=== PATIENT | male | born 1985 | race Two or more races ===

== ENCOUNTER 2023-05-15 04:04 | Emergency (ER) | payer OTHER ==
[~2023-05-15] VITALS: Ht 177.8 cm; Wt 100.0 kg
[2023-05-15] MEDS ORDERED: LORazepam 2 MG/ML VIAL IVP ONE (04:30)
[2023-05-15] MEDS ORDERED: MIDAZOLAM HCL 5 MG/ML VIAL ONE (04:32)
[2023-05-15] MEDS ORDERED: PROPOFOL 1000 MG/ISO-OSM 100 ML ONE (04:39)
[2023-05-15] MEDS ORDERED: MIDAZOLAM HCL 5 MG/ML VIAL IVP ONE (04:45)
[2023-05-15] MEDS ORDERED: PHENYTOIN SODIUM 1,000 MG in SODIUM CHLORIDE 0.9% 150 ML IV ONE (04:45)
[2023-05-15 04:59] LABS: BASOPHILS % (AUTO) 0.5 % (0.0-2.0); EOSINOPHILS % (AUTO) 0 % (1.0-6.0); HEMATOCRIT 45.7 % (41-53); HEMOGLOBIN 14.5 g/dL (13.5-17.5); LYMPHOCYTES # (AUTO) 1.7 K/uL (1.0-4.8); LYMPHOCYTES % (AUTO) 9.3 % (22.0-44.0); MEAN CORPUSCULAR HEMOGLOBIN 30.5 pg (26.0-34.0); MEAN CORPUSCULAR HGB CONC 31.7 G/dL (31.0-37.0); MEAN CORPUSCULAR VOLUME 96 fL (80-100); MONOCYTES % (AUTO) 5.5 % (2.0-9.0); NEUTROPHILS # (AUTO) 15.6 K/uL (1.8-7.7); NEUTROPHILS % (AUTO) 84.7 % (40.0-70.0); PLATELET COUNT (AUTO) 277 K/uL (150-450); RED BLOOD CELL COUNT(AUTO) 4.74 MIL/uL (4.50-5.90)
[2023-05-15 05:05] LABS: ANION GAP 26 mmol/L (8-16); CALCIUM, TOTAL 8.9 mg/dL (8.8-10.5); CARBON DIOXIDE 14 mmol/L (22-29); CHLORIDE 98 mmol/L (98-107); CREATININE 1.15 mg/dL (0.60-1.30); GLOMERULAR FILTR. RATE CALC > 60 mL/min (>60); GLUCOSE,RANDOM 130 mg/dL (70-110); POTASSIUM 4.1 mmol/L (3.5-5.1); SODIUM SERUM 137 mmol/L (136-145)
[2023-05-15 05:11] LABS: ALANINE AMINOTRANSFERASE 26 U/L (12-78); ALBUMIN 4.6 g/dL (3.4-5.0); ALKALINE PHOSPHATASE 96 U/L (46-116); ASPARTATE AMINOTRANSFERASE 26 U/L (15-37); BILIRUBIN,TOTAL 0.3 mg/dL (0.1-1.0); TOTAL PROTEIN, SERUM 8.2 g/dL (6.4-8.2)
[2023-05-15] MEDS ORDERED: LevETIRAcetam 1,500 MG in DEXTROSE 5%-WATER 100 ML IV ONE (05:30)
[2023-05-15 05:48] LABS: AMPHET/METH SCREEN,URINE POSITIVE (NEGATIVE); BARBITURATE SCREEN, URINE NEGATIVE (NEGATIVE); BENZODIAZEPINES SCREEN,URINE NEGATIVE (NEGATIVE); CANNABINOID SCREEN,URINE POSITIVE (NEGATIVE); COCAINE SCREEN,URINE NEGATIVE (NEGATIVE); METHADONE SCREEN, URINE NEGATIVE (NEGATIVE); OPIATE SCREEN,URINE NEGATIVE (NEGATIVE); PHENCYCLIDINE SCREEN,URINE NEGATIVE (NEGATIVE)
[2023-05-15 05:56] VITALS: PULSE 95; RESP 20; O2SAT 99
[2023-05-15 05:58] VITALS: PULSE 95; RESP 20; O2SAT 99
[2023-05-15] MEDS: PROPOFOL 1000 MG/ISO-OSM 100 ML IV PRN ×2 (06:02→08:03)
[2023-05-15 06:39] LABS: COVID AG,FIA SOURCE NASAL SWAB
[2023-05-15 07:00] VITALS: PULSE 90; RESP 20; O2SAT 100
[2023-05-15] MEDS ORDERED: PANTOPRAZOLE SODIUM 80 MG in SODIUM CHLORIDE 0.9% 100 ML IV SCH (07:00)
[2023-05-15] MEDS ORDERED: PANTOPRAZOLE SODIUM 40 MG/VIAL IVP ONE (07:00)
[2023-05-15] MEDS ORDERED: MIDAZOLAM HCL 100 MG in SODIUM CHLORIDE 0.9% 180 ML IV PRN (08:00)
[2023-05-15] MEDS ORDERED: LevETIRAcetam 3,000 MG in DEXTROSE 5%-WATER 250 ML IV ONE (08:00)
[2023-05-15 09:00] VITALS: PULSE 81; RESP 22; O2SAT 99
[2023-05-15 10:45] VITALS: BP 121/75; PULSE 80; RESP 22; TEMP 98.6
== END 2023-05-15 11:18 | disposition short-term general hospital (02) ==
LOC: EMS 04:05
DX: G40.901 Epilepsy, unspecified, not intractable, with status epilepticus (principal); J96.90 Respiratory failure, unspecified, unspecified whether with hypoxia or hypercapnia; F12.90 Cannabis use, unspecified, uncomplicated; Z20.822 Contact with and (suspected) exposure to COVID-19
CPT/HCPCS: 99285; 96365; 96366; 70450; 71045; 96375; 87426; 80053; 85025; 36415; 96376; 96368; 80307; C9113; J1165; J2704; J7060 ×2; J7050 ×3; G0480; J2250 ×2; J0712; 94002